=== PATIENT | female | born 1980 | race Two or more races ===

== ENCOUNTER 2024-04-09 16:08 | Inpatient (IN) | payer OTHER, SELFPAY ==
[2024-04-09 16:25] VITALS: BMI 28.7
[2024-04-09 16:40] VITALS: BP 132/84; PULSE 108; RESP 18; TEMP 36.8; O2SAT 96
--- NOTE | 2024-04-09 17:50 | PC.ADMIT ---
Celine was admitted to on 04/09/24 at 16:18 from [facility] for the treatment of anxiety. She signed a CV upon arrival. Contraband check was completed upon admission. She denies suicidal and homicidal thoughts and intent. She denies visual hallucinations but endorses hearing voices telling her to harm herself. She reports that she can come to staff for help if feeling unsafe. She is alert and oriented x4. She reports poor sleep and appetite for about one week. She reports losing about 7 lbs in one week due to anxiety and loss of appetite. She was pleasant and cooperative with admission process. medical interpreter was present for admission, but pt states she is able to understand most Taiwanese and sometimes has difficulty speaking Taiwanese. She states she is looking to change medications and obtain outside providers for psychiatry and therapy. Celine has an external heart monitor for tachycardia; Jam Tao and Clover Ball were notified and determined pt was appropriate for 15 minute checks.
[2024-04-09 18:24] LABS: Alanine Aminotransferase 24 U/L (0-31); Albumin Level 4.4 g/dL (3.5-5.0); Alkaline Phosphatase 63 U/L (39-117); Anion Gap 11 (12-20); Aspartate Amino Transferase 20 U/L (5-31); Bilirubin Total 0.2 mg/dL (0.0-1.0); Blood Urea Nitrogen 13 mg/dL (9-16); Calcium 9.4 mg/dL (8.4-10.2); Carbon Dioxide 26 mmol/L (22-29); Chloride 110 mmol/L (96-108); Creatinine Clr Calc Pharmacy 119.7; Estimated Glomerular Filt Rate > 60; Glucose Random 118 mg/dL (60-115); Potassium 3.8 mmol/L (3.3-5.1); Sodium 143 mmol/L (135-145); Total Protein 7.7 g/dL (6.5-8.0)
[2024-04-09 20:00] VITALS: BP 114/71; PULSE 89; RESP 16; TEMP 37.4; O2SAT 97
[2024-04-09] MEDS: traZODone HCL 50 MG TABLET PO (20:57)
[2024-04-09] MEDS: hydrOXYzine HCL 25 MG TABLET PO (20:57)
[2024-04-10] MEDS: Levothyroxine Sodium 175 MCG TABLET PO (06:19)
[2024-04-10] MEDS: hydrOXYzine HCL 25 MG TABLET PO ×2 (06:25→12:01)
[2024-04-10 07:48] VITALS: BP 115/72; PULSE 84; RESP 16; TEMP 36.5; O2SAT 97
[2024-04-10 08:41] LABS: Cholesterol 206 mg/dL (<200); HDL Cholesterol 48 mg/dL (>40); LDL Cholesterol Calculated 128 mg/dL (<100); Triglycerides 151 mg/dL (<150)
[2024-04-10] MEDS: dilTIAZem HCL CD 120 MG CAP.ER.DEG PO (09:00)
[2024-04-10] MEDS: Sertraline HCL 25 MG TABLET 75 MG PO (09:01)
[2024-04-10] MEDS: Acetaminophen 325 MG TABLET 650 MG PO (09:04)
--- NOTE | 2024-04-10 09:19 | P.HPPS_ITS ---
HPI Date of Service: 04/10/24 Chief Complaint: PANIS DISORDER Sources of Information: patient interviewed, chart reviewed and crisis/core team assessment reviewed HPI Subjective Notes: Alves Warning and Conditional Voluntary Narrative: Patient is a 43-year-old female with history of FELIPE and PTSD who presented to ER via EMS due to increased anxiety resulting in frequent panic attacks. Per crisis report, patient is on a heart monitor due to having rapid heart rate from her panic attacks. She presented tearful, shaky. Patient reports her panic attacks worsened in November of 2023 resulting in having to put on a heart monitor due to increased heart rate; unclear of precipitant. Patient reports her anxiety began in 2003 when she witnessed a pneumonic position while attending [employer] in [place]. She reportedly witnessed a man float in the air, which caused her significant fear. Hx of suicide attempt via overdose in 2003 and went inpatient for treatment; denies any other attempts. Pt does not have any outpatient psychiatric providers. During admission assessment, patient presents alert and oriented x3. Calm and cooperative. japanese interpreter present. Patient reports she has lots of anxiety. Patient stated, I was getting a lot of anxiety since Saturday. I was not able to eat. Called 911 because my own voice in my head is telling me to hurt myself. I got scared and called 911. I was feeling that way because I wanted it to stop. That was the 1st time that I have ever heard my voice that way . denies SI/HI/VH/AH. Patient reports she has been taking the same psychiatric medications for the past 7 years. history of suicide attempt via overdosing on Tylenol in 2003 while going through a divorce. She reports wanting referrals to outpatient psychiatric providers. Patient reports difficulty staying asleep at night; discussed starting on low dose of Remeron, risks/benefits reviewed; patient agreed to trial. Past Psychiatric History: 1 prior psychiatric inpatient admission in [place]. History of suicide attempt via overdose on Tylenol in 2003. Does not have outpatient psychiatric providers. Medication trials: Sertraline, hydroxyzine, trazodone. Paxil. Xanax. Medical Evaluation Reviewed: Yes [facility] Medical History (Updated 04/10/24 @ 16:22 by Claudia Tao NP) PTSD (post-traumatic stress disorder) Hypothyroidism Anxiety Panic disorder [episodic paroxysmal anxiety] Family History: Mother: Depressed Social History: Lives in an apartment. . 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 Associates degree. Substance History: Denies Trauma History: Yes Diagnostics Vital Signs (24Hr): Vital Signs - 24 hr 04/09/24 16:40 04/09/24 20:00 04/10/24 07:48 Temperature 98.2 F 99.3 F 97.7 F Pulse Rate 108 H 89 84 Respiratory Rate 18 16 16 Blood Pressure 132/84 114/71 115/72 Pulse Oximetry 96 97 97 Oxygen Delivery Method Room Air Room Air Room Air BMI result Body Mass Index 28.7 Labs 04/09/24 18:02 Labs: Laboratory Results - last 48 hr 04/09/24 04/10/24 18:02 08:10 Sodium 143 Potassium 3.8 Chloride 110 H Carbon Dioxide 26 Anion Gap 11 L BUN 13 Creatinine 0.74 Estim Creat Clear Calc 119.7 Estimated GFR > 60 Random Glucose 118 H Calcium 9.4 Total Bilirubin 0.2 AST 20 ALT 24 Alkaline Phosphatase 63 Total Protein 7.7 Albumin 4.4 Triglycerides 151 H Cholesterol 206 H LDL Cholesterol, Calc 128 H HDL Cholesterol 48 Meds/Allergies Meds Home Medications ?Medication ?Instructions ?Recorded ?Confirmed ?Type diltiazem HCl 120 mg capsule,24 120 mg PO DAILY 04/09/24 04/09/24 History hr,extended release (Tiadylt ER) hydroxyzine HCl 10 mg tablet 10 mg PO BID PRN anxiety 04/09/24 04/09/24 History levothyroxine 175 mcg tablet 175 mcg PO DAILY 04/09/24 04/09/24 History magnesium glycinate 100 mg PO DAILY 04/09/24 04/09/24 History metoprolol succinate 25 mg 25 mg PO DAILY 04/09/24 04/09/24 History tablet,extended release 24 hr sertraline 50 mg tablet 75 mg PO QAM 04/09/24 04/09/24 History trazodone 50 mg tablet 50 - 100 mg PO BEDTIME PRN insomnia 04/09/24 04/09/24 History Allergies Allergies Allergy/AdvReac Type Severity Reaction Status Date / Time No Known Allergies Allergy Verified 04/09/24 16:36 Mental Status Exam Mental Status Exam Narrative: Pt is alert and oriented; behavior is cooperative, calm; dressed in casual attire; mood is described as anxious ; eye contact appropriate; Speech is normal rate, volume and not pressured; thought process is organized and goal directed; Thought content is on tx; denies SI/HI/VH/AH. Assessment & Plan Assessment & Plan (1) FELIPE (generalized anxiety disorder): Status: Acute Code(s): F41.1 - Generalized anxiety disorder (2) PTSD (post-traumatic stress disorder): Status: Acute Code(s): F43.10 - Post-traumatic stress disorder, unspecified Plan Patient is a 43-year-old female with history of FELIPE and PTSD who presented to ER via EMS due to increased anxiety resulting in frequent panic attacks. Plan: CV 15 minute safety checks continue home medications Increase Zoloft to 100mg PO daily Start: Remeron 7.5mg PO bedtime Klonopin 0.5mg PO daily PRN Increase hydroxyzine to 50mg PO Q6HR PRN obtain collateral encourage groups referral to outpatient psychiatric providers discharge planning Patient educated on: diagnosis, medication risk/benefits and therapeutic strategies Reason for continued inpatient stay Substantial Risk for: med/psych decompensation Statement Statement: I have reviewed the history and physical and performed a pertinent examination on my patient. No changes have occurred unless specified. If the History and Physical was not performed prior to admission, the Hospitalist's service will be consulted for completing the admission physical. Time Spent With Patient Time: Total time managing care of this patient today _60___ minutes.
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
[2024-04-10] MEDS: OLANZapine 5 MG TABLET PO ×2 (12:56→17:44)
[2024-04-10] MEDS: hydrOXYzine HCL 50 MG TABLET PO (13:05)
[2024-04-10] MEDS: clonazePAM 0.5 MG TABLET PO (14:40)
[2024-04-10 20:00] VITALS: BP 143/77; PULSE 91; RESP 18; TEMP 36.7; O2SAT 96
[2024-04-10] MEDS: Mirtazapine 7.5 MG TABLET PO (20:12)
[2024-04-10] MEDS: traZODone HCL 50 MG TABLET PO (20:12)
[2024-04-11] MEDS: Levothyroxine Sodium 175 MCG TABLET PO (06:01)
[2024-04-11 07:55] VITALS: BP 120/77; PULSE 96; RESP 14; TEMP 36.8; O2SAT 96
[2024-04-11 09:14] VITALS: BP 120/77; PULSE 96
[2024-04-11] MEDS: dilTIAZem HCL CD 120 MG CAP.ER.DEG PO (09:14)
[2024-04-11] MEDS: Sertraline HCL 100 MG TABLET PO (09:14)
[2024-04-11] MEDS: OLANZapine 5 MG TABLET PO ×2 (09:17→16:41)
[2024-04-11] MEDS: hydrOXYzine HCL 50 MG TABLET PO (09:17)
--- NOTE | 2024-04-11 10:16 | HO.PSYCHPN ---
Subjective Subjective Date of Service: 04/11/24 Reason For Visit: PANIS DISORDER Interim History: No management issues as per nursing. Adhere with treatment. Patient reports overall feeling much less anxious and that Atarax and olanzapine have been helpful. Sleep improving. Feeling less depressed. No SI. No agitation or psychosis. Medication Compliance: Yes Side effects from medications: No Attending Groups: Intermittent Review of Systems Acute medical concerns: No Review of Systems Review of Systems Unremarkable Mental Status Exam Mental Status Exam Narrative: Pt is alert and oriented; behavior is cooperative, calm; dressed in casual attire; mood is described as much better ; eye contact appropriate; Speech is normal rate, volume and not pressured; thought process is organized and goal directed; Thought content is on tx; denies SI/HI/VH/AH. Diagnostics Vital Signs (24Hr): Vital Signs - 24 hr 04/10/24 20:00 04/11/24 07:55 04/11/24 09:14 Temperature 98.1 F 98.2 F Pulse Rate 91 96 96 Respiratory Rate 18 14 Blood Pressure 143/77 H 120/77 120/77 Pulse Oximetry 96 96 Oxygen Delivery Method Room Air Room Air BMI result Body Mass Index 28.7 Labs 04/09/24 18:02 Labs: Laboratory Results - last 48 hr 04/09/24 04/10/24 18:02 08:10 Sodium 143 Potassium 3.8 Chloride 110 H Carbon Dioxide 26 Anion Gap 11 L BUN 13 Creatinine 0.74 Estim Creat Clear Calc 119.7 Estimated GFR > 60 Random Glucose 118 H Calcium 9.4 Total Bilirubin 0.2 AST 20 ALT 24 Alkaline Phosphatase 63 Total Protein 7.7 Albumin 4.4 Triglycerides 151 H Cholesterol 206 H LDL Cholesterol, Calc 128 H HDL Cholesterol 48 Medications Medications Current Medications Acetaminophen (Acetaminophen 325 Mg Tablet) 650 mg PO Q6H PRN PRN Reason: Headache/Pain Mild Scale (1-3) Last Admin: 04/10/24 09:04 Dose: 650 mg Al Hydroxide/Mg Hydroxide (Magnesium Hydrox/Alum Hydrox 30 Ml Oral.Susp) 30 ml PO Q6H PRN PRN Reason: Heartburn/Nausea Clonazepam (Clonazepam 0.5 Mg Tablet) 0.5 mg PO DAILY PRN PRN Reason: Anxiety Last Admin: 04/10/24 14:40 Dose: 0.5 mg Diltiazem HCl (Diltiazem Hcl Cd 120 Mg Cap.Er.Deg) 120 mg PO DAILY COUNTS INCLUDE 234 BEDS AT THE [facility]; Protocol Last Admin: 04/11/24 09:14 Dose: 120 mg Hydroxyzine HCl (Hydroxyzine Hcl 50 Mg Tablet) 50 mg PO Q6H PRN PRN Reason: Anxiety Last Admin: 04/11/24 09:17 Dose: 50 mg Levothyroxine Sodium (Levothyroxine Sodium 175 Mcg Tablet) 175 mcg PO DAILY@0600 COUNTS INCLUDE 234 BEDS AT THE [facility] Last Admin: 04/11/24 06:01 Dose: 175 mcg Magnesium Hydroxide (Milk Of Magnesia 30 Ml Oral.Susp) 30 ml PO DAILY PRN PRN Reason: Constipation Mirtazapine (Mirtazapine 7.5 Mg Tablet) 7.5 mg PO BEDTIME [facility] Last Admin: 04/10/24 20:12 Dose: 7.5 mg Nicotine Polacrilex (Nicotine Polacrilex 2 Mg Gum) 4 mg BUCCAL Q2H PRN PRN Reason: Nicotine Cravings Olanzapine (Olanzapine 5 Mg Tablet) 5 mg PO Q4H PRN PRN Reason: agitation Last Admin: 04/11/24 09:17 Dose: 5 mg Sertraline HCl (Sertraline Hcl 100 Mg Tablet) 100 mg PO DAILY COUNTS INCLUDE 234 BEDS AT THE [facility] Last Admin: 04/11/24 09:14 Dose: 100 mg Trazodone HCl (Trazodone Hcl 50 Mg Tablet) 50 mg PO BEDTIME MRX1 PRN PRN Reason: Insomnia Last Admin: 04/10/24 20:12 Dose: 50 mg Allergies Allergies Allergy/AdvReac Type Severity Reaction Status Date / Time No Known Allergies Allergy Verified 04/09/24 16:36 Assessment & Plan Assessment & Plan (1) FELIPE (generalized anxiety disorder): Status: Acute Code(s): F41.1 - Generalized anxiety disorder (2) PTSD (post-traumatic stress disorder): Status: Acute Code(s): F43.10 - Post-traumatic stress disorder, unspecified Plan Patient is a 43-year-old female with history of FELIPE and PTSD who presented to ER via EMS due to increased anxiety resulting in frequent panic attacks. Plan: CV 15 minute safety checks continue home medications Increase Zoloft to 100mg PO daily Start: Remeron 7.5mg PO bedtime Klonopin 0.5mg PO daily PRN Increase hydroxyzine to 50mg PO Q6HR PRN obtain collateral encourage groups referral to outpatient psychiatric providers discharge planning 04/11/2024: No changes Reason for continued inpatient stay Substantial Risk for: rapid decompensation Time Spent With Patient Time: Total time managing care of this patient today ____ minutes.
[2024-04-11 20:00] VITALS: BP 108/63; PULSE 78; RESP 16; TEMP 36.3; O2SAT 96
[2024-04-11] MEDS: Mirtazapine 7.5 MG TABLET PO (21:17)
[2024-04-11] MEDS: traZODone HCL 50 MG TABLET PO ×2 (21:17→23:17)
[2024-04-12] MEDS: Levothyroxine Sodium 175 MCG TABLET PO (06:29)
[2024-04-12 07:35] VITALS: BP 120/71; PULSE 92; RESP 16; TEMP 36.9; O2SAT 97
[2024-04-12 08:47] VITALS: BP 120/71; PULSE 92
[2024-04-12] MEDS: OLANZapine 5 MG TABLET PO ×3 (08:47→17:43)
[2024-04-12] MEDS: dilTIAZem HCL CD 120 MG CAP.ER.DEG PO (08:47)
[2024-04-12] MEDS: Sertraline HCL 100 MG TABLET PO (08:47)
[2024-04-12] MEDS: hydrOXYzine HCL 50 MG TABLET PO ×2 (08:48→17:43)
--- NOTE | 2024-04-12 10:25 | P.PNPSI_ITS ---
Subjective Subjective Date of Service: 04/12/24 Reason For Visit: PANIS DISORDER Medical Problems Affecting Mental Status: No Interim History: Slept well. Attending groups. Reports meds are very helpful for depression and anxiety. No SI. No agitation or psychosis. Feeling she is close to feeling ready for discharge and dispo planning with team. Medication Compliance: Yes Side effects from medications: No Attending Groups: Yes Review of Systems Acute medical concerns: No Review of Systems Review of Systems Unremarkable Mental Status Exam Mental Status Exam Narrative: Pt is alert and oriented; behavior is cooperative, calm; dressed in casual attire; mood is described as good ; eye contact appropriate; Speech is normal rate, volume and not pressured; thought process is organized and goal directed; Thought content is on tx; denies SI/HI/VH/AH. Diagnostics Vital Signs (24Hr): Vital Signs - 24 hr 04/11/24 20:00 04/12/24 07:35 04/12/24 08:47 Temperature 97.3 F 98.5 F Pulse Rate 78 92 92 Respiratory Rate 16 16 Blood Pressure 108/63 120/71 120/71 Pulse Oximetry 96 97 Oxygen Delivery Method Room Air Room Air BMI result Body Mass Index 28.7 Labs 04/09/24 18:02 Medications Medications Current Medications Acetaminophen (Acetaminophen 325 Mg Tablet) 650 mg PO Q6H PRN PRN Reason: Headache/Pain Mild Scale (1-3) Last Admin: 04/10/24 09:04 Dose: 650 mg Al Hydroxide/Mg Hydroxide (Magnesium Hydrox/Alum Hydrox 30 Ml Oral.Susp) 30 ml PO Q6H PRN PRN Reason: Heartburn/Nausea Clonazepam (Clonazepam 0.5 Mg Tablet) 0.5 mg PO DAILY PRN PRN Reason: Anxiety Last Admin: 04/10/24 14:40 Dose: 0.5 mg Diltiazem HCl (Diltiazem Hcl Cd 120 Mg Cap.Er.Deg) 120 mg PO DAILY [facility]; Protocol Last Admin: 04/12/24 08:47 Dose: 120 mg Hydroxyzine HCl (Hydroxyzine Hcl 50 Mg Tablet) 50 mg PO Q6H PRN PRN Reason: Anxiety Last Admin: 04/12/24 08:48 Dose: 50 mg Levothyroxine Sodium (Levothyroxine Sodium 175 Mcg Tablet) 175 mcg PO DAILY@0600 [facility] Last Admin: 04/12/24 06:29 Dose: 175 mcg Magnesium Hydroxide (Milk Of Magnesia 30 Ml Oral.Susp) 30 ml PO DAILY PRN PRN Reason: Constipation Mirtazapine (Mirtazapine 7.5 Mg Tablet) 7.5 mg PO BEDTIME [facility] Last Admin: 04/11/24 21:17 Dose: 7.5 mg Nicotine Polacrilex (Nicotine Polacrilex 2 Mg Gum) 4 mg BUCCAL Q2H PRN PRN Reason: Nicotine Cravings Olanzapine (Olanzapine 5 Mg Tablet) 5 mg PO Q4H PRN PRN Reason: agitation Last Admin: 04/12/24 08:47 Dose: 5 mg Sertraline HCl (Sertraline Hcl 100 Mg Tablet) 100 mg PO DAILY [facility] Last Admin: 04/12/24 08:47 Dose: 100 mg Trazodone HCl (Trazodone Hcl 50 Mg Tablet) 50 mg PO BEDTIME MRX1 PRN PRN Reason: Insomnia Last Admin: 04/11/24 23:17 Dose: 50 mg Allergies Allergies Allergy/AdvReac Type Severity Reaction Status Date / Time No Known Allergies Allergy Verified 04/09/24 16:36 Assessment & Plan Assessment & Plan (1) FELIPE (generalized anxiety disorder): Status: Acute Code(s): F41.1 - Generalized anxiety disorder (2) PTSD (post-traumatic stress disorder): Status: Acute Code(s): F43.10 - Post-traumatic stress disorder, unspecified Plan Patient is a 43-year-old female with history of FELIPE and PTSD who presented to ER via EMS due to increased anxiety resulting in frequent panic attacks. Plan: CV 15 minute safety checks continue home medications Increase Zoloft to 100mg PO daily Start: Remeron 7.5mg PO bedtime Klonopin 0.5mg PO daily PRN Increase hydroxyzine to 50mg PO Q6HR PRN obtain collateral encourage groups referral to outpatient psychiatric providers discharge planning 04/11/2024: No changes 04/12: no changes Reason for continued inpatient stay Substantial Risk for: rapid decompensation Time Spent With Patient Time: Total time managing care of this patient today ____ minutes.
[2024-04-12] MEDS: clonazePAM 0.5 MG TABLET PO (13:29)
[2024-04-12 19:21] VITALS: BP 121/71; PULSE 80; RESP 18; TEMP 36.6; O2SAT 97
[2024-04-13] MEDS: Levothyroxine Sodium 175 MCG TABLET PO (07:04)
[2024-04-13 07:10] VITALS: BP 130/77; PULSE 88; RESP 14; TEMP 37.1; O2SAT 97
[2024-04-13 08:33] VITALS: BP 130/77; PULSE 88
[2024-04-13] MEDS: hydrOXYzine HCL 50 MG TABLET PO (08:33)
[2024-04-13] MEDS: dilTIAZem HCL CD 120 MG CAP.ER.DEG PO (08:33)
[2024-04-13] MEDS: Sertraline HCL 100 MG TABLET PO (08:33)
[2024-04-13] MEDS: OLANZapine 5 MG TABLET PO ×2 (08:33→18:38)
--- NOTE | 2024-04-13 09:14 | HO.PSYCHPN ---
Subjective Subjective Date of Service: 04/13/24 Reason For Visit: PANIS DISORDER Subjective Notes: Conditional Voluntary Interim History: Active on unit. Patient reports decreased anxiety; racing thoughts at times. She reports decreased amount of panic attacks. denies SI/HI/VH/AH. Patient reports passing suicidal thoughts when having panic attack. discussed medications. Start: Clonidine 0.05mg PO TID Increase: hydroxyzine 75mg Q6HR PRN Trazone 100mg PO bedtime PRN Change: Zyprexa 5mg PO Q6HR PRN Medication Compliance: Yes Side effects from medications: No Review of Systems Constitutional: Reports as per HPI Eyes: Reports as per HPI Reports as per HPI Cardiovascular: Reports as per HPI Respiratory: Reports as per HPI Gastrointestinal: Reports as per HPI Genitourinary: Reports as per HPI Musculoskeletal: Reports as per HPI Skin/Breast: Reports as per HPI Reports as per HPI Psychiatric: Reports as per HPI Endocrine: Reports as per HPI Hematologic/Lymphatic: Reports as per HPI Allergic/Immunologic: Reports as per HPI Mental Status Exam Mental Status Exam Narrative: Pt is alert and oriented; behavior is cooperative; dressed in casual attire; mood is described as anxious ; eye contact appropriate; Speech is normal rate, volume and not pressured; thought process is organized and goal directed; Thought content is on tx; denies SI/HI/VH/AH. Diagnostics Vital Signs (24Hr): Vital Signs - 24 hr 04/12/24 19:21 04/13/24 07:10 04/13/24 08:33 Temperature 97.8 F 98.7 F Pulse Rate 80 88 88 Respiratory Rate 18 14 Blood Pressure 121/71 130/77 130/77 Pulse Oximetry 97 97 Oxygen Delivery Method Room Air Room Air BMI result Body Mass Index 28.7 Labs 04/09/24 18:02 Medications Medications Current Medications Acetaminophen (Acetaminophen 325 Mg Tablet) 650 mg PO Q6H PRN PRN Reason: Headache/Pain Mild Scale (1-3) Last Admin: 04/10/24 09:04 Dose: 650 mg Al Hydroxide/Mg Hydroxide (Magnesium Hydrox/Alum Hydrox 30 Ml Oral.Susp) 30 ml PO Q6H PRN PRN Reason: Heartburn/Nausea Clonazepam (Clonazepam 0.5 Mg Tablet) 0.5 mg PO DAILY PRN PRN Reason: Anxiety Last Admin: 04/12/24 13:29 Dose: 0.5 mg Diltiazem HCl (Diltiazem Hcl Cd 120 Mg Cap.Er.Deg) 120 mg PO DAILY [facility]; Protocol Last Admin: 04/13/24 08:33 Dose: 120 mg Hydroxyzine HCl (Hydroxyzine Hcl 50 Mg Tablet) 50 mg PO Q6H PRN PRN Reason: Anxiety Last Admin: 04/13/24 08:33 Dose: 50 mg Levothyroxine Sodium (Levothyroxine Sodium 175 Mcg Tablet) 175 mcg PO DAILY@0600 [facility] Last Admin: 04/13/24 07:04 Dose: 175 mcg Magnesium Hydroxide (Milk Of Magnesia 30 Ml Oral.Susp) 30 ml PO DAILY PRN PRN Reason: Constipation Mirtazapine (Mirtazapine 7.5 Mg Tablet) 7.5 mg PO BEDTIME [facility] Last Admin: 04/12/24 23:23 Dose: Not Given Nicotine Polacrilex (Nicotine Polacrilex 2 Mg Gum) 4 mg BUCCAL Q2H PRN PRN Reason: Nicotine Cravings Olanzapine (Olanzapine 5 Mg Tablet) 5 mg PO Q4H PRN PRN Reason: agitation Last Admin: 04/13/24 08:33 Dose: 5 mg Sertraline HCl (Sertraline Hcl 100 Mg Tablet) 100 mg PO DAILY [facility] Last Admin: 04/13/24 08:33 Dose: 100 mg Trazodone HCl (Trazodone Hcl 50 Mg Tablet) 50 mg PO BEDTIME MRX1 PRN PRN Reason: Insomnia Last Admin: 04/11/24 23:17 Dose: 50 mg Allergies Allergies Allergy/AdvReac Type Severity Reaction Status Date / Time No Known Allergies Allergy Verified 04/09/24 16:36 Assessment & Plan Assessment & Plan (1) FELIPE (generalized anxiety disorder): Status: Acute Code(s): F41.1 - Generalized anxiety disorder (2) PTSD (post-traumatic stress disorder): Status: Acute Code(s): F43.10 - Post-traumatic stress disorder, unspecified Plan Patient is a 43-year-old female with history of FELIPE and PTSD who presented to ER via EMS due to increased anxiety resulting in frequent panic attacks. Plan: CV 15 minute safety checks continue home medications Increase Zoloft to 100mg PO daily Start: Remeron 7.5mg PO bedtime Klonopin 0.5mg PO daily PRN Increase hydroxyzine to 50mg PO Q6HR PRN obtain collateral encourage groups referral to outpatient psychiatric providers discharge planning 04/11/2024: No changes 04/12: no changes 04/13: Active on unit. Patient reports decreased anxiety; racing thoughts at times. She reports decreased amount of panic attacks. denies SI/HI/VH/AH. Patient reports passing suicidal thoughts when having panic attack. discussed medications. Start: Clonidine 0.05mg PO TID Increase: hydroxyzine 75mg Q6HR PRN Trazone 100mg PO bedtime PRN Change: Zyprexa 5mg PO Q6HR PRN Patient educated on: diagnosis, medication risk/benefits and therapeutic strategies Reason for continued inpatient stay Substantial Risk for: med/psych decompensation Time Spent With Patient Time: Total time managing care of this patient today _20___ minutes.
[2024-04-13 11:20] VITALS: BP 129/77
[2024-04-13] MEDS: cloNIDine HCL 0.1 MG TABLET 0.05 MG PO ×2 (11:20→16:10)
[2024-04-13 16:10] VITALS: BP 133/78
[2024-04-13] MEDS: hydrOXYzine HCL 25 MG TABLET 75 MG PO (18:37)
[2024-04-13 19:55] VITALS: BP 100/58; PULSE 73; RESP 16; TEMP 36.1; O2SAT 97
[2024-04-13 20:24] VITALS: BP 125/79; PULSE 76
[2024-04-13] MEDS: traZODone HCL 100 MG TABLET PO (20:27)
[2024-04-13] MEDS: Mirtazapine 7.5 MG TABLET PO (20:27)
[2024-04-14] MEDS: Levothyroxine Sodium 175 MCG TABLET PO (06:27)
[2024-04-14 07:54] VITALS: BP 114/67; PULSE 88; RESP 16; TEMP 37.2; O2SAT 95
[2024-04-14] MEDS: cloNIDine HCL 0.1 MG TABLET 0.05 MG PO (08:54)
[2024-04-14 08:55] VITALS: BP 116/70; PULSE 88
[2024-04-14] MEDS: dilTIAZem HCL CD 120 MG CAP.ER.DEG PO (08:55)
[2024-04-14] MEDS: Sertraline HCL 100 MG TABLET PO (08:55)
[2024-04-14] MEDS: hydrOXYzine HCL 25 MG TABLET 75 MG PO ×2 (08:55→17:51)
[2024-04-14] MEDS: OLANZapine 5 MG TABLET PO ×2 (08:55→17:51)
--- NOTE | 2024-04-14 09:01 | HO.PSYCHPN ---
Subjective Subjective Date of Service: 04/14/24 Reason For Visit: PANIS DISORDER Subjective Notes: Conditional Voluntary Interim History: Active on unit. social with peers. attending groups. Pt reports some anxiety but states much improvement with mediation changes. She reports sleeping well at night. denies SI/HI/VH/AH. Increase: clonidine 0.1mg PO TID Medication Compliance: Yes Side effects from medications: No Attending Groups: Yes Review of Systems Constitutional: Reports as per HPI Eyes: Reports as per HPI Reports as per HPI Cardiovascular: Reports as per HPI Respiratory: Reports as per HPI Gastrointestinal: Reports as per HPI Musculoskeletal: Reports as per HPI Skin/Breast: Reports as per HPI Reports as per HPI Psychiatric: Reports as per HPI Endocrine: Reports as per HPI Hematologic/Lymphatic: Reports as per HPI Allergic/Immunologic: Reports as per HPI Mental Status Exam Mental Status Exam Narrative: Pt is alert and oriented; behavior is cooperative; dressed in casual attire; mood is described as anxious ; eye contact appropriate; Speech is normal rate, volume and not pressured; thought process is organized and goal directed; Thought content is on tx; denies SI/HI/VH/AH. Diagnostics Vital Signs (24Hr): Vital Signs - 24 hr 04/13/24 11:20 04/13/24 16:10 04/13/24 19:55 Temperature 97.0 F Pulse Rate 73 Respiratory Rate 16 Blood Pressure 129/77 133/78 100/58 L Pulse Oximetry 97 Oxygen Delivery Method Room Air 04/13/24 20:24 04/14/24 07:54 04/14/24 08:55 Temperature 98.9 F Pulse Rate 76 88 88 Respiratory Rate 16 Blood Pressure 125/79 114/67 116/70 Pulse Oximetry 95 Oxygen Delivery Method Room Air BMI result Body Mass Index 28.7 Labs 04/09/24 18:02 Medications Medications Current Medications Acetaminophen (Acetaminophen 325 Mg Tablet) 650 mg PO Q6H PRN PRN Reason: Headache/Pain Mild Scale (1-3) Last Admin: 04/10/24 09:04 Dose: 650 mg Al Hydroxide/Mg Hydroxide (Magnesium Hydrox/Alum Hydrox 30 Ml Oral.Susp) 30 ml PO Q6H PRN PRN Reason: Heartburn/Nausea Clonazepam (Clonazepam 0.5 Mg Tablet) 0.5 mg PO DAILY PRN PRN Reason: Anxiety Last Admin: 04/12/24 13:29 Dose: 0.5 mg Clonidine HCl (Clonidine Hcl 0.1 Mg Tablet) 0.05 mg PO TID [facility]; Protocol Last Admin: 04/14/24 08:54 Dose: 0.05 mg Diltiazem HCl (Diltiazem Hcl Cd 120 Mg Cap.Er.Deg) 120 mg PO DAILY [facility]; Protocol Last Admin: 04/14/24 08:55 Dose: 120 mg Hydroxyzine HCl (Hydroxyzine Hcl 25 Mg Tablet) 75 mg PO Q6H PRN PRN Reason: Anxiety Last Admin: 04/14/24 08:55 Dose: 75 mg Levothyroxine Sodium (Levothyroxine Sodium 175 Mcg Tablet) 175 mcg PO DAILY@0600 [facility] Last Admin: 04/14/24 06:27 Dose: 175 mcg Magnesium Hydroxide (Milk Of Magnesia 30 Ml Oral.Susp) 30 ml PO DAILY PRN PRN Reason: Constipation Mirtazapine (Mirtazapine 7.5 Mg Tablet) 7.5 mg PO BEDTIME [facility] Last Admin: 04/13/24 20:27 Dose: 7.5 mg Nicotine Polacrilex (Nicotine Polacrilex 2 Mg Gum) 4 mg BUCCAL Q2H PRN PRN Reason: Nicotine Cravings Olanzapine (Olanzapine 5 Mg Tablet) 5 mg PO Q6H PRN PRN Reason: agitation Last Admin: 04/14/24 08:55 Dose: 5 mg Sertraline HCl (Sertraline Hcl 100 Mg Tablet) 100 mg PO DAILY [facility] Last Admin: 04/14/24 08:55 Dose: 100 mg Trazodone HCl (Trazodone Hcl 100 Mg Tablet) 100 mg PO BEDTIME PRN PRN Reason: Insomnia Last Admin: 04/13/24 20:27 Dose: 100 mg Allergies Allergies Allergy/AdvReac Type Severity Reaction Status Date / Time No Known Allergies Allergy Verified 04/09/24 16:36 Assessment & Plan Assessment & Plan (1) FELIPE (generalized anxiety disorder): Status: Acute Code(s): F41.1 - Generalized anxiety disorder (2) PTSD (post-traumatic stress disorder): Status: Acute Code(s): F43.10 - Post-traumatic stress disorder, unspecified Plan Patient is a 43-year-old female with history of FELIPE and PTSD who presented to ER via EMS due to increased anxiety resulting in frequent panic attacks. Plan: CV 15 minute safety checks continue home medications Increase Zoloft to 100mg PO daily Start: Remeron 7.5mg PO bedtime Klonopin 0.5mg PO daily PRN Increase hydroxyzine to 50mg PO Q6HR PRN obtain collateral encourage groups referral to outpatient psychiatric providers discharge planning 04/11/2024: No changes 04/12: no changes 04/13: Active on unit. Patient reports decreased anxiety; racing thoughts at times. She reports decreased amount of panic attacks. denies SI/HI/VH/AH. Patient reports passing suicidal thoughts when having panic attack. discussed medications. Start: Clonidine 0.05mg PO TID Increase: hydroxyzine 75mg Q6HR PRN Trazone 100mg PO bedtime PRN Change: Zyprexa 5mg PO Q6HR PRN 04/14: Active on unit. social with peers. attending groups. Pt reports some anxiety but states much improvement with mediation changes. She reports sleeping well at night. denies SI/HI/VH/AH. Increase: clonidine 0.1mg PO TID Patient educated on: diagnosis, medication risk/benefits and therapeutic strategies Reason for continued inpatient stay Substantial Risk for: med/psych decompensation Time Spent With Patient Time: Total time managing care of this patient today _20___ minutes.
[2024-04-14] MEDS: clonazePAM 0.5 MG TABLET PO (13:25)
[2024-04-14 15:59] VITALS: BP 120/74; PULSE 87; RESP 16; O2SAT 98
[2024-04-14] MEDS: cloNIDine HCL 0.1 MG TABLET PO ×2 (16:00→22:07)
[2024-04-14 20:00] VITALS: BP 96/69; PULSE 93; RESP 16; TEMP 36.9; O2SAT 97
[2024-04-14 22:04] VITALS: BP 131/86; PULSE 84; RESP 16; O2SAT 98
[2024-04-14] MEDS: Mirtazapine 7.5 MG TABLET PO (22:07)
[2024-04-14] MEDS: traZODone HCL 100 MG TABLET PO (22:09)
[2024-04-15] MEDS: Levothyroxine Sodium 175 MCG TABLET PO (06:32)
[2024-04-15 07:31] VITALS: BP 108/67; PULSE 86; RESP 14; TEMP 36.7; O2SAT 95
[2024-04-15] MEDS: cloNIDine HCL 0.1 MG TABLET PO ×3 (08:25→20:02)
[2024-04-15] MEDS: dilTIAZem HCL CD 120 MG CAP.ER.DEG PO (08:25)
[2024-04-15] MEDS: Sertraline HCL 100 MG TABLET PO (08:25)
[2024-04-15] MEDS: hydrOXYzine HCL 25 MG TABLET 75 MG PO ×2 (08:29→16:50)
[2024-04-15] MEDS: OLANZapine 5 MG TABLET PO ×2 (08:30→16:50)
--- NOTE | 2024-04-15 09:12 | P.PNPSI_ITS ---
Subjective Subjective Date of Service: 04/15/24 Reason For Visit: PANIS DISORDER Subjective Notes: Conditional Voluntary Interim History: surgical elastic knitter present. Pt reports feeling much better than before ; pt reports she has not had a panic attack in 2 days. She reports improved appetite and sleep. denies SI/HI/VH/AH. Patient reports she plans on following up with outpatient providers. plan to discharge home tomorrow. Medication Compliance: Yes Side effects from medications: No Attending Groups: Yes Review of Systems Constitutional: Reports as per HPI Eyes: Reports as per HPI Reports as per HPI Cardiovascular: Reports as per HPI Respiratory: Reports as per HPI Gastrointestinal: Reports as per HPI Genitourinary: Reports as per HPI Musculoskeletal: Reports as per HPI Skin/Breast: Reports as per HPI Reports as per HPI Psychiatric: Reports as per HPI Endocrine: Reports as per HPI Hematologic/Lymphatic: Reports as per HPI Allergic/Immunologic: Reports as per HPI Mental Status Exam Mental Status Exam Narrative: Pt is alert and oriented; behavior is cooperative; dressed in casual attire; mood is described as good ; eye contact appropriate; Speech is normal rate, volume and not pressured; thought process is organized and goal directed; Thought content is on tx; denies SI/HI/VH/AH. Diagnostics Vital Signs (24Hr): Vital Signs - 24 hr 04/14/24 15:59 04/14/24 20:00 04/14/24 22:04 Temperature 98.4 F Pulse Rate 87 93 84 Respiratory Rate 16 16 16 Blood Pressure 120/74 96/69 131/86 Pulse Oximetry 98 97 98 Oxygen Delivery Method Room Air Room Air Room Air 04/15/24 07:31 Temperature 98.1 F Pulse Rate 86 Respiratory Rate 14 Blood Pressure 108/67 Pulse Oximetry 95 Oxygen Delivery Method Room Air BMI result Body Mass Index 28.7 Labs 04/09/24 18:02 Medications Medications Current Medications Acetaminophen (Acetaminophen 325 Mg Tablet) 650 mg PO Q6H PRN PRN Reason: Headache/Pain Mild Scale (1-3) Last Admin: 04/10/24 09:04 Dose: 650 mg Al Hydroxide/Mg Hydroxide (Magnesium Hydrox/Alum Hydrox 30 Ml Oral.Susp) 30 ml PO Q6H PRN PRN Reason: Heartburn/Nausea Clonazepam (Clonazepam 0.5 Mg Tablet) 0.5 mg PO DAILY PRN PRN Reason: Anxiety Last Admin: 04/14/24 13:25 Dose: 0.5 mg Clonidine HCl (Clonidine Hcl 0.1 Mg Tablet) 0.1 mg PO TID [facility]; Protocol Last Admin: 04/15/24 08:25 Dose: 0.1 mg Diltiazem HCl (Diltiazem Hcl Cd 120 Mg Cap.Er.Deg) 120 mg PO DAILY [facility]; Protocol Last Admin: 04/15/24 08:25 Dose: 120 mg Hydroxyzine HCl (Hydroxyzine Hcl 25 Mg Tablet) 75 mg PO Q6H PRN PRN Reason: Anxiety Last Admin: 04/15/24 08:29 Dose: 75 mg Levothyroxine Sodium (Levothyroxine Sodium 175 Mcg Tablet) 175 mcg PO DAILY@0600 [facility] Last Admin: 04/15/24 06:32 Dose: 175 mcg Magnesium Hydroxide (Milk Of Magnesia 30 Ml Oral.Susp) 30 ml PO DAILY PRN PRN Reason: Constipation Mirtazapine (Mirtazapine 7.5 Mg Tablet) 7.5 mg PO BEDTIME [facility] Last Admin: 04/14/24 22:07 Dose: 7.5 mg Nicotine Polacrilex (Nicotine Polacrilex 2 Mg Gum) 4 mg BUCCAL Q2H PRN PRN Reason: Nicotine Cravings Olanzapine (Olanzapine 5 Mg Tablet) 5 mg PO Q6H PRN PRN Reason: agitation Last Admin: 04/15/24 08:30 Dose: 5 mg Sertraline HCl (Sertraline Hcl 100 Mg Tablet) 100 mg PO DAILY [facility] Last Admin: 04/15/24 08:25 Dose: 100 mg Trazodone HCl (Trazodone Hcl 100 Mg Tablet) 100 mg PO BEDTIME PRN PRN Reason: Insomnia Last Admin: 04/14/24 22:09 Dose: 100 mg Allergies Allergies Allergy/AdvReac Type Severity Reaction Status Date / Time No Known Allergies Allergy Verified 04/09/24 16:36 Assessment & Plan Assessment & Plan (1) FELIPE (generalized anxiety disorder): Status: Acute Code(s): F41.1 - Generalized anxiety disorder (2) PTSD (post-traumatic stress disorder): Status: Acute Code(s): F43.10 - Post-traumatic stress disorder, unspecified Plan Patient is a 43-year-old female with history of FELIPE and PTSD who presented to ER via EMS due to increased anxiety resulting in frequent panic attacks. Plan: CV 15 minute safety checks continue home medications Increase Zoloft to 100mg PO daily Start: Remeron 7.5mg PO bedtime Klonopin 0.5mg PO daily PRN Increase hydroxyzine to 50mg PO Q6HR PRN obtain collateral encourage groups referral to outpatient psychiatric providers discharge planning 04/11/2024: No changes 04/12: no changes 04/13: Active on unit. Patient reports decreased anxiety; racing thoughts at times. She reports decreased amount of panic attacks. denies SI/HI/VH/AH. Patient reports passing suicidal thoughts when having panic attack. discussed medications. Start: Clonidine 0.05mg PO TID Increase: hydroxyzine 75mg Q6HR PRN Trazone 100mg PO bedtime PRN Change: Zyprexa 5mg PO Q6HR PRN 04/14: Active on unit. social with peers. attending groups. Pt reports some anxiety but states much improvement with mediation changes. She reports sleeping well at night. denies SI/HI/VH/AH. Increase: clonidine 0.1mg PO TID 04/15: surgical elastic knitter present. Pt reports feeling much better than before ; pt reports she has not had a panic attack in 2 days. She reports improved appetite and sleep. denies SI/HI/VH/AH. Patient reports she plans on following up with outpatient providers. plan to discharge home tomorrow. Patient educated on: diagnosis and medication risk/benefits Reason for continued inpatient stay Substantial Risk for: stable for discharge Time Spent With Patient Time: Total time managing care of this patient today _20___ minutes.
[2024-04-15] MEDS: clonazePAM 0.5 MG TABLET PO (12:32)
[2024-04-15 15:22] VITALS: BP 108/67; PULSE 82
[2024-04-15 20:00] VITALS: BP 120/73; PULSE 91; RESP 16; TEMP 36.4; O2SAT 96
[2024-04-15] MEDS: traZODone HCL 100 MG TABLET PO (20:01)
[2024-04-15] MEDS: Mirtazapine 7.5 MG TABLET PO (20:02)
[2024-04-16] MEDS: Levothyroxine Sodium 175 MCG TABLET PO (06:06)
[2024-04-16 07:15] VITALS: BP 112/68; PULSE 79; RESP 14; TEMP 36.8; O2SAT 96
[2024-04-16 08:52] VITALS: BP 112/68
[2024-04-16] MEDS: cloNIDine HCL 0.1 MG TABLET PO (08:52)
[2024-04-16 08:53] VITALS: BP 112/68; PULSE 79
[2024-04-16] MEDS: OLANZapine 5 MG TABLET PO (08:53)
[2024-04-16] MEDS: hydrOXYzine HCL 25 MG TABLET 75 MG PO (08:53)
[2024-04-16] MEDS: Sertraline HCL 100 MG TABLET PO (08:53)
[2024-04-16] MEDS: dilTIAZem HCL CD 120 MG CAP.ER.DEG PO (08:53)
--- NOTE | 2024-04-16 09:19 | PM.PSYDC ---
DS: Providers Provider Date of Service: 04/16/24 Date of admission: 04/09/24 16:08 Date of discharge: 04/16/24 Primary care physician: Unknown Physician Admitting clinician: Claudia Tao Attending physician on admission: Michael Carrasquillo Consults: 04/10/24 12:04 Consult to Hospitalist Routine Comment: Consulting Provider: [facility] Hospitalists Reason For Exam: H&P Attending physician on discharge: Michael Carrasquillo Discharging clinician: Claudia Tao DS: Diagnosis Discharge Diagnosis (1) FELIPE (generalized anxiety disorder): Status: Acute (2) PTSD (post-traumatic stress disorder): Status: Acute DS: Medications Discharge Medications Home Medications: Home Medications ?Medication ?Instructions ?Recorded ?Confirmed diltiazem HCl 120 mg capsule,24 120 mg PO DAILY 04/09/24 04/09/24 hr,extended release (Tiadylt ER) levothyroxine 175 mcg tablet 175 mcg PO DAILY 04/09/24 04/09/24 magnesium glycinate 100 mg PO DAILY 04/09/24 04/09/24 Previous Rx's ?Medication ?Instructions ?Recorded clonazepam 0.5 mg tablet 0.5 mg PO DAILY PRN Anxiety 30 04/15/24 days #30 tabs clonidine HCl 0.1 mg tablet 0.1 mg PO TID 30 days #90 tabs 04/15/24 hydroxyzine HCl 50 mg tablet 50 mg PO TID PRN anxiety 30 days 04/15/24 #90 tabs mirtazapine 7.5 mg tablet 7.5 mg PO BEDTIME 30 days #30 tabs 04/15/24 olanzapine 5 mg tablet 5 mg PO TID PRN agitation 30 days 04/15/24 #90 tabs sertraline 100 mg tablet 100 mg PO DAILY 30 days #30 tabs 04/15/24 trazodone 100 mg tablet 100 mg PO BEDTIME PRN Insomnia 30 04/15/24 days #30 tabs Mental Status Exam Mental Status Exam Narrative: Pt is alert and oriented; behavior is cooperative; dressed in casual attire; mood is described as good ; eye contact appropriate; Speech is normal rate, volume and not pressured; thought process is organized and goal directed; Thought content is on tx; denies SI/HI/VH/AH. Data Data Completed and Pending Completed studies during hospitalization [Text1]: 04/09/24 04/10/24 18:02 08:10 Sodium 143 Potassium 3.8 Chloride 110 H Carbon Dioxide 26 Anion Gap 11 L BUN 13 Creatinine 0.74 Estim Creat Clear Calc 119.7 Estimated GFR > 60 Random Glucose 118 H Calcium 9.4 Total Bilirubin 0.2 AST 20 ALT 24 Alkaline Phosphatase 63 Total Protein 7.7 Albumin 4.4 Triglycerides 151 H Cholesterol 206 H LDL Cholesterol, Calc 128 H HDL Cholesterol 48 DS: Summary Hospital Course Hospital Course: Patient is a 43-year-old female with history of FELIPE and PTSD who presented to ER via EMS due to increased anxiety resulting in frequent panic attacks. Per crisis report, patient is on a heart monitor due to having rapid heart rate from her panic attacks. She presented tearful, shaky. Patient reports her panic attacks worsened in November of 2023 resulting in having to put on a heart monitor due to increased heart rate; unclear of precipitant. Patient reports her anxiety began in 2003 when she witnessed a pneumonic position while attending [employer]ism in [place]. She reportedly witnessed a man float in the air, which caused her significant fear. Hx of suicide attempt via overdose in 2003 and went inpatient for treatment; denies any other attempts. Pt does not have any outpatient psychiatric providers. During admission assessment, patient presents alert and oriented x3. Calm and cooperative. monotype setter present. Patient reports she has lots of anxiety. Patient stated, I was getting a lot of anxiety since Saturday. I was not able to eat. Called 911 because my own voice in my head is telling me to hurt myself. I got scared and called 911. I was feeling that way because I wanted it to stop. That was the 1st time that I have ever heard my voice that way . denies SI/HI/VH/AH. Patient reports she has been taking the same psychiatric medications for the past 7 years. history of suicide attempt via overdosing on Tylenol in 2003 while going through a divorce. She reports wanting referrals to outpatient psychiatric providers. Patient reports difficulty staying asleep at night; discussed starting on low dose of Remeron, risks/benefits reviewed; patient agreed to trial. Plan: CV 15 minute safety checks continue home medications Increase Zoloft to 100mg PO daily Start: Remeron 7.5mg PO bedtime Klonopin 0.5mg PO daily PRN Increase hydroxyzine to 50mg PO Q6HR PRN obtain collateral encourage groups referral to outpatient psychiatric providers discharge planning Active on unit. Patient reports decreased anxiety; racing thoughts at times. She reports decreased amount of panic attacks. denies SI/HI/VH/AH. Patient reports passing suicidal thoughts when having panic attack. discussed medications. Start: Clonidine 0.05mg PO TID Increase: hydroxyzine 75mg Q6HR PRN Trazone 100mg PO bedtime PRN Change: Zyprexa 5mg PO Q6HR PRN Active on unit. social with peers. attending groups. Pt reports some anxiety but states much improvement with mediation changes. She reports sleeping well at night. denies SI/HI/VH/AH. Increase: clonidine 0.1mg PO TID monotype setter present. Pt reports feeling much better than before ; pt reports she has not had a panic attack in 2 days. She reports improved appetite and sleep. denies SI/HI/VH/AH. Patient reports she plans on following up with outpatient providers. plan to discharge home tomorrow. Patient reports feeling good and ready to go home ; denies SI/HI/VH/AH. Pt plans to follow up with outpatient providers. Time spent discussing smoking cessation with patient: 3 to 10 minutes Status at Discharge Cognitive/behavioral status at discharge: Patient was interviewed prior to discharge and found to be fully oriented and without SI or HI. Patient has insight and demonstrates good judgment in terms of wanting to pursue treatment. Patient has a safety plan that includes presenting to the closest ER or calling 911 if feeling unsafe. Functional status at discharge: independent ambulation Overall status at discharge: patient is back to baseline Time Spent with Patient Time attestation: Total time managing care of this patient today _20___ minutes. Time spent: Less than 30 minutes Discharge Plan Discharge Anticipated Discharge Date/Time: 04/16/24 10:00 Patient Disposition: Home, Self-Care Discharge Diagnosis: FELIPE, PTSD Referrals: [facility] [Other] - 1 Week (Referred. They will be in touch through your email to send consents for treatment and set up an appointment with you. ) [facility] [Provider Group] - 1 Week (04-13-24 [facility] was added to patients chart. Please call [phone] to schedule your follow up appt.) Discharge Medications: New trazodone 100 mg Tablet 100 mg PO BEDTIME PRN (Reason: Insomnia) 30 Days Qty: 30 0RF sertraline 100 mg Tablet 100 mg PO DAILY 30 Days Qty: 30 0RF mirtazapine 7.5 mg Tablet 7.5 mg PO BEDTIME 30 Days Qty: 30 0RF clonidine HCl 0.1 mg Tablet 0.1 mg PO TID 30 Days Qty: 90 0RF Protocol: Hold for SBP< HOLD for SBP < : 90 clonazepam 0.5 mg Tablet 0.5 mg PO DAILY PRN (Reason: Anxiety) 30 Days Qty: 30 0RF hydroxyzine HCl 50 mg tablet 50 mg PO TID PRN (Reason: anxiety) 30 Days Qty: 90 0RF olanzapine 5 mg Tablet 5 mg PO TID PRN (Reason: agitation) 30 Days Qty: 90 0RF Continued levothyroxine 175 mcg tablet 175 mcg PO DAILY diltiazem HCl [Tiadylt ER] 120 mg capsule,extended release 24 hr 120 mg PO DAILY magnesium glycinate 100 mg magnesium capsule 100 mg PO DAILY Discontinued trazodone 50 mg tablet 50 - 100 mg PO BEDTIME PRN (Reason: insomnia) metoprolol succinate 25 mg tablet extended release 24 hr 25 mg PO DAILY hydroxyzine HCl 10 mg tablet 10 mg PO BID PRN (Reason: anxiety) sertraline 50 mg tablet 75 mg PO QAM Discharge Orders: Discharge Order (Routine); Ordered 04/16/24 Ordered By: Claudia Tao Diet: Regular diet Activity on Discharge: As tolerated Stand Alone Forms: Patient Portal Discharge page, Community Support Print Language: Nepalese Care Plan Goals: Maintain mood and safe behaviors Take medications as prescribed Practice coping skills Continue with outpatient providers and reach out to them as needed Health Concerns: Mood stability and behaviors Plan of Treatment: Follow up with your PCP, psychiatric provider and other outpatient providers regarding above concerns Take medications as prescribed Assessment: Patient was interviewed prior to discharge and found to be fully oriented and without SI or HI. Patient has insight and demonstrates good judgment in terms of wanting to pursue treatment. Patient has a safety plan that includes presenting to the closest ER or calling 911 if feeling unsafe. Discharge Date/Time: 04/16/24 10:04
== END 2024-04-16 10:04 | disposition home or self-care (01) | DRG 756 ==
PROVIDERS: Admitting Provider Registered Nurse; Responsible Provider Registered Nurse; Visit Provider Psychiatry & Neurology Psychiatry
DX: F41.1 Generalized anxiety disorder (principal); E03.9 Hypothyroidism, unspecified; F43.10 Post-traumatic stress disorder, unspecified; Z79.890 Hormone replacement therapy; Z87.891 Personal history of nicotine dependence; Z79.899 Other long term (current) drug therapy
CPT/HCPCS: 36415; 80053; 80061

== ENCOUNTER → 2024-04-09 16:08 | Outpatient (BNV) | payer OTHER, SELFPAY | PROVIDERS: Admitting Provider Registered Nurse; Responsible Provider Registered Nurse; Visit Provider Registered Nurse | DX: F41.1 Generalized anxiety disorder (principal); F43.11 Post-traumatic stress disorder, acute | CPT/HCPCS: 90792; 99231; 99232; 99238 ==

== ENCOUNTER → 2024-04-09 16:08 | Outpatient (BNV) | payer MEDICAID, SELFPAY | PROVIDERS: Admitting Provider Registered Nurse; Responsible Provider Registered Nurse; Visit Provider Student in an Organized Health Care Education/Training Program | DX: Z02.2 Encounter for examination for admission to residential institution (principal) | CPT/HCPCS: 99429 ==